=== PATIENT | male | born 1995 | race Caucasian/White ===

== ENCOUNTER 2017-08-15 05:46 | Emergency (ER) | payer OTHER ==
[2017-08-15 06:17] LABS: Basophils # (A) 0.1 k/uL (0-0.2); Basophils % (A) 1 %; Eosinophils # (A) 0.3 k/uL (0-0.7); Eosinophils % (A) 4 %; HCT 41.2 % (39.0-53.0); HGB 14.5 gm/dL (13.0-17.5); Lymphocytes # (A) 2.8 k/uL (1.0-4.8); Lymphocytes % (A) 31 %; MCHC 35.1 g/dL (31.0-37.0); MCV 76.7 fL (80.0-100.0); Mean Platelet Volume 6.9; Monocytes # (A) 0.4 k/uL (0-1.0); Monocytes % (A) 5 %; Neutrophils # (A) 5.1 k/uL (1.3-7.7); Neutrophils % (A) 58 %; Platelet Count 359 k/uL (150-450); RBC 5.36 m/uL (4.30-5.90); WBC 8.9 k/uL (4.0-11.0)
--- NOTE | 2017-08-15 06:29 | XR ---
EXAMINATION TYPE: XR chest 2V DATE OF EXAM: 08/15/2017 COMPARISON: NONE HISTORY: Chest pain TECHNIQUE: Frontal and lateral views of the chest are obtained. FINDINGS: Heart and mediastinum are normal. Lungs are clear. Diaphragm is normal. Bony thorax appear s normal. IMPRESSION: Normal chest.
[2017-08-15 06:31] LABS: ALT 42 U/L (21-72); AST 31 U/L (17-59); Albumin 4.2 g/dL (3.5-5.0); Alkaline Phosphatase 100 U/L (38-126); Anion Gap 17 mmol/L; Blood Urea Nitrogen 14 mg/dL (9-20); Calcium 8.9 mg/dL (8.4-10.2); Carbon Dioxide 24 mmol/L (22-30); Chloride 103 mmol/L (98-107); Glucose 139 mg/dL (74-99); Potassium 4.1 mmol/L (3.5-5.1); Sodium 144 mmol/L (137-145); Total Bilirubin 0.3 mg/dL (0.2-1.3); Total Protein 7.1 g/dL (6.3-8.2)
--- NOTE | 2017-08-15 06:47 | ED ---
Chest Pain HPI - General Chief Complaint: Chest Pain Stated Complaint: chest tightness Time Seen by Provider: 08/15/17 05:55 Source: patient, family Mode of arrival: ambulatory Limitations: no limitations - History of Present Illness Initial Comments: Patient is 21-year-old man who woke from sleep about an hour ago with feeling like he couldn't breathe, and anxious feeling like he was trapped. He also had a tight feeling across his chest. Denies previous history. MD Complaint: chest pain Onset/Timin -: hour(s) Onset: during rest Pain Location: substernal Pain Radiation: none Quality: tightness Consistency: now resolved Improves With: nothing Worsens With: nothing Treatments Prior to Arrival: none - Related Data Home Medications Medication Instructions Recorded Confirmed No Known Home Medications [No 08/15/17 08/15/17 Known Home Medications] Allergies Allergy/AdvReac Type Severity Reaction Status Date / Time Penicillins Allergy Unknown Verified 08/15/17 05:52 Review of Systems ROS Statement: Those systems with pertinent positive or pertinent negative responses have been documented in the HPI. ROS Other: All systems not noted in ROS Statement are negative. Constitutional: Denies: fever, chills Respiratory: Reports: as per HPI, dyspnea. Denies: cough Cardiovascular: Reports: as per HPI, chest pain, palpitations. Denies: orthopnea, edema, syncope Gastrointestinal: Denies: abdominal pain, nausea, vomiting Musculoskeletal: Denies: back pain Skin: Denies: rash Neurological: Denies: headache, weakness, numbness Psychiatric: Reports: anxiety EKG Findings - EKG Results: EKG: interpreted by WENDY CASTRO, sinus rhythm (Rate approximate 90 bpm), normal axis, normal QRS, normal ST/T, no acute changes - [place], Pacemaker, Normal: Normal tracing: normal tracing Past Medical History Past Medical History: No Reported History History of Any Multi-Drug Resistant Organisms: None Reported Past Surgical History: No Surgical Hx Reported Past Psychological History: No Psychological Hx Reported Smoking Status: Never smoker Past Alcohol Use History: Occasional Past Drug Use History: None Reported General Exam Limitations: no limitations General appearance: alert, in no apparent distress, obese Head exam: Present: atraumatic, normocephalic Eye exam: Present: normal appearance Neck exam: Present: normal inspection, full ROM Respiratory exam: Present: normal lung sounds bilaterally. Absent: respiratory distress, wheezes, rales, rhonchi Cardiovascular Exam: Present: regular rate, normal rhythm, normal heart sounds. Absent: systolic murmur, diastolic murmur, rubs, gallop GI/Abdominal exam: Present: soft. Absent: distended, tenderness, guarding, rebound Extremities exam: Present: normal inspection, normal capillary refill. Absent: pedal edema, calf tenderness Back exam: Present: normal inspection. Absent: CVA tenderness (R), CVA tenderness (L) Psychiatric exam: Present: anxious. Absent: homicidal ideation, suicidal ideation Skin exam: Present: warm, dry, intact, normal color. Absent: rash Course Vital Signs 08/15/17 08/15/17 08/15/17 05:48 06:44 07:40 Temperature 97.3 F L 97.9 F Pulse Rate 83 96 89 Respiratory 20 18 16 Rate Blood Pressure 168/90 145/76 142/75 O2 Sat by Pulse 100 98 98 Oximetry Disposition Clinical Impression: Sleep apnea Disposition: HOME SELF-CARE Condition: Good Instructions: Chest Pain (ED) Is patient prescribed a controlled substance at d/c from ED?: No Referrals: Brando Mathews MD [Primary Care Provider] - 1-2 days
[2017-08-15 07:42] VITALS: BP 142/75; PULSE 89; RESP 16; TEMP 97.9
== END 2017-08-15 07:40 | disposition home or self-care (01) ==
LOC: EC 05:46
DX: G47.30 Sleep apnea, unspecified (principal); R07.2 Precordial pain; Z88.0 Allergy status to penicillin
CPT/HCPCS: 36415; 71046; 80053; 83735; 84484; 85025; 85379; 93005; 99285

== ENCOUNTER 2018-02-08 19:42 | Emergency (ER) | payer OTHER ==
[2018-02-08 19:52] VITALS: RESP 20
[2018-02-08 21:28] LABS: Amphetamine Screen,Urine Not Detected (NotDetected); Barbiturate Screen,Urine Not Detected (NotDetected); Benzodiazepines Screen,Urine Not Detected (NotDetected); Cocaine Screen,Urine Not Detected (NotDetected); Methadone Screen, Urine Not Detected (NotDetected); Opiate Screen,Urine Not Detected (NotDetected); Oxycodone Screen, Urine Not Detected (NotDetected); Phencyclidine Screen,Urine Not Detected (NotDetected); Tricyclic Antidepressant,Urine Not Detected (NotDetected); Urn Cannabinoid Scrn Not Detected (NotDetected)
--- NOTE | 2018-02-08 21:44 | ED ---
Psych HPI - General Source: patient Mode of arrival: ambulatory <Carlita Stiles - Last Filed: 02/09/18 03:55> <Yesenia Mulligan - Last Filed: 02/09/18 04:17> - General Chief Complaint: Psychiatric Symptoms Stated Complaint: Mental health Time Seen by Provider: 02/08/18 20:06 - History of Present Illness Initial Comments: 22-year-old male patient presents to the emergency department today with complaints of increased anxiety. Patient states that over the last few days he has been having "visions" about his and child being . He is concerned that he may be of the cause of their deaths which makes him feel very upset and anxious. He states that he has had thoughts of killing himself before he can do any harm to his family. States that he has no urge or impulse to harm them however given the visions he feels very concerned about this. Patient has a history of anxiety and has been taking Klonopin for this. He was started on Celexa but had increasing thoughts of suicide today did stop that medication. Patient does not see a counselor or therapist outpatient. Patient has no history of suicide attempt. Denies any alcohol or drug use. States he is in the Klonopin he is able to sleep and rest. He denies any current physical symptoms or concerns. (Carlita Stiles) - Related Data Home Medications Medication Instructions Recorded Confirmed clonazePAM [KlonoPIN] 0.5 mg PO BID PRN 02/08/18 02/08/18 Allergies Allergy/AdvReac Type Severity Reaction Status Date / Time Penicillins Allergy Rash/Hives Verified 02/08/18 21:32 Review of Systems ROS Other: All systems not noted in ROS Statement are negative. <Carlita Stiles - Last Filed: 02/09/18 03:55> ROS Other: All systems not noted in ROS Statement are negative. <Yesenia Mulligan - Last Filed: 02/09/18 04:17> ROS Statement: Those systems with pertinent positive or pertinent negative responses have been documented in the HPI. Past Medical History Past Medical History: No Reported History History of Any Multi-Drug Resistant Organisms: None Reported Past Surgical History: No Surgical Hx Reported Additional Past Surgical History / Comment(s): deviated septum with cautery. Past Psychological History: Anxiety Smoking Status: Never smoker Past Alcohol Use History: None Reported, Occasional Past Drug Use History: None Reported <Carlita Stiles - Last Filed: 02/09/18 03:55> General Exam Limitations: no limitations General appearance: alert, in no apparent distress, other (This is a well- developed, well-nourished male male patient in no acute distress. Vital signs upon presentation are temperature 98.1F, pulse 106, respirations 20, blood pressure 159/82, pulse ox 100% on room air.) Respiratory exam: Present: normal lung sounds bilaterally. Absent: respiratory distress, wheezes, rales, rhonchi, stridor Cardiovascular Exam: Present: regular rate, normal rhythm, normal heart sounds. Absent: systolic murmur, diastolic murmur, rubs, gallop, clicks GI/Abdominal exam: Present: soft, normal bowel sounds. Absent: distended, tenderness, guarding, rebound, rigid Neurological exam: Present: alert, oriented X3, CN II-XII intact, other ( Strength in all 4, uses 5/5.) Psychiatric exam: Present: depressed, anxious, suicidal ideation. Absent: homicidal ideation Skin exam: Present: warm, dry, intact, normal color. Absent: rash <Carlita Stiles - Last Filed: 02/09/18 03:55> Vital Signs 02/08/18 19:45 Temperature 98.1 F Pulse Rate 106 H Respiratory 20 Rate Blood Pressure 159/82 O2 Sat by Pulse 100 Oximetry Medical Decision Making - Lab Data Result diagrams: 02/08/18 23:00 02/08/18 23:00 <Carlita Stiles - Last Filed: 02/09/18 03:55> - Lab Data Result diagrams: 02/08/18 23:00 02/08/18 23:00 <Yesenia Mulligan - Last Filed: 02/09/18 04:17> - Medical Decision Making 22-year-old male patient presented to the emergency department today with complaints of increased anxiety. He was seen and evaluated by emergency psychiatric services, it is felt that he would benefit from inpatient admission. Unfortunately his body habitus is not compatible with our beds on the mental health unit so he will have to be transferred to a different facility. Clinical significant was obtained. He'll be transferred when a bed is available. (Carlita Stiles) Personally saw and evaluated the patient, I discussed the patient that my role was to evaluate him for completion of the clinical certification for admission to a psychiatric hospital. Patient's breast understanding of this. Patient expressed extreme anxiety and desire to be admitted to an inpatient psychiatric Hospital. I completed the psychiatric certification paperwork. Patient remained cooperative and hemodynamically stable throughout his ER stay. (Yesenia Mulligan) - Lab Data Lab Results 02/08/18 02/08/18 02/08/18 Range/Units 20:44 20:44 23:00 WBC 10.6 (3.8-10.6) k/uL RBC 4.97 (4.30-5.90) m/uL Hgb 12.8 L (13.0-17.5) gm/dL Hct 38.5 L (39.0-53.0) % MCV 77.4 L (80.0-100.0) fL MCH 25.8 (25.0-35.0) pg MCHC 33.3 (31.0-37.0) g/dL RDW 13.6 (11.5-15.5) % Plt Count 330 (150-450) k/uL Neutrophils % 66 % Lymphocytes % 26 % Monocytes % 5 % Eosinophils % 2 % Basophils % 1 % Neutrophils # 7.0 (1.3-7.7) k/uL Lymphocytes # 2.7 (1.0-4.8) k/uL Monocytes # 0.5 (0-1.0) k/uL Eosinophils # 0.2 (0-0.7) k/uL Basophils # 0.1 (0-0.2) k/uL Sodium (137-145) mmol/L Potassium (3.5-5.1) mmol/L Chloride (98-107) mmol/L Carbon Dioxide (22-30) mmol/L Anion Gap mmol/L BUN (9-20) mg/dL Creatinine (0.66-1.25) mg/dL Est GFR (CKD-EPI)AfAm (>60 ml/min/1.73 sqM) Est GFR (CKD-EPI)NonAf (>60 ml/min/1.73 sqM) Glucose (74-99) mg/dL Calcium (8.4-10.2) mg/dL Total Bilirubin (0.2-1.3) mg/dL AST (17-59) U/L ALT (21-72) U/L Alkaline Phosphatase (38-126) U/L Total Protein (6.3-8.2) g/dL Albumin (3.5-5.0) g/dL Urine Color Yellow Urine Appearance Clear (Clear) Urine pH 6.0 (5.0-8.0) Ur Specific [place] 1.022 (1.001-1.035) Urine Protein Negative (Negative) Urine Glucose (UA) Negative (Negative) Urine Ketones Negative (Negative) Urine Blood Negative (Negative) Urine Nitrite Negative (Negative) Urine Bilirubin Negative (Negative) Urine Urobilinogen <2.0 (<2.0) mg/dL Ur Leukocyte Esterase Negative (Negative) Urine Opiates Screen Not Detected (NotDetected) Ur Oxycodone Screen Not Detected (NotDetected) Urine Methadone Screen Not Detected (NotDetected) Ur Propoxyphene Screen Not Detected (NotDetected) Ur Barbiturates Screen Not Detected (NotDetected) U Tricyclic Antidepress Not Detected (NotDetected) Ur Phencyclidine Scrn Not Detected (NotDetected) Ur Amphetamines Screen Not Detected (NotDetected) U Methamphetamines Scrn Not Detected (NotDetected) U Benzodiazepines Scrn Not Detected (NotDetected) Urine Cocaine Screen Not Detected (NotDetected) U Marijuana (THC) Screen Not Detected (NotDetected) 02/08/18 Range/Units 23:00 WBC (3.8-10.6) k/uL RBC (4.30-5.90) m/uL Hgb (13.0-17.5) gm/dL Hct (39.0-53.0) % MCV (80.0-100.0) fL MCH (25.0-35.0) pg MCHC (31.0-37.0) g/dL RDW (11.5-15.5) % Plt Count (150-450) k/uL Neutrophils % % Lymphocytes % % Monocytes % % Eosinophils % % Basophils % % Neutrophils # (1.3-7.7) k/uL Lymphocytes # (1.0-4.8) k/uL Monocytes # (0-1.0) k/uL Eosinophils # (0-0.7) k/uL Basophils # (0-0.2) k/uL Sodium 140 (137-145) mmol/L Potassium 4.0 (3.5-5.1) mmol/L Chloride 105 (98-107) mmol/L Carbon Dioxide 28 (22-30) mmol/L Anion Gap 7 mmol/L BUN 18 (9-20) mg/dL Creatinine 0.75 (0.66-1.25) mg/dL Est GFR (CKD-EPI)AfAm >90 (>60 ml/min/1.73 sqM) Est GFR (CKD-EPI)NonAf >90 (>60 ml/min/1.73 sqM) Glucose 108 H (74-99) mg/dL Calcium 9.4 (8.4-10.2) mg/dL Total Bilirubin 0.5 (0.2-1.3) mg/dL AST 23 (17-59) U/L ALT 38 (21-72) U/L Alkaline Phosphatase 56 (38-126) U/L Total Protein 7.0 (6.3-8.2) g/dL Albumin 3.9 (3.5-5.0) g/dL Urine Color Urine Appearance (Clear) Urine pH (5.0-8.0) Ur Specific [place] (1.001-1.035) Urine Protein (Negative) Urine Glucose (UA) (Negative) Urine Ketones (Negative) Urine Blood (Negative) Urine Nitrite (Negative) Urine Bilirubin (Negative) Urine Urobilinogen (<2.0) mg/dL Ur Leukocyte Esterase (Negative) Urine Opiates Screen (NotDetected) Ur Oxycodone Screen (NotDetected) Urine Methadone Screen (NotDetected) Ur Propoxyphene Screen (NotDetected) Ur Barbiturates Screen (NotDetected) U Tricyclic Antidepress (NotDetected) Ur Phencyclidine Scrn (NotDetected) Ur Amphetamines Screen (NotDetected) U Methamphetamines Scrn (NotDetected) U Benzodiazepines Scrn (NotDetected) Urine Cocaine Screen (NotDetected) U Marijuana (THC) Screen (NotDetected) Disposition <Carlita Stiles M - Last Filed: 02/09/18 03:55> <Yesenia Mulligan P - Last Filed: 02/09/18 04:17> Clinical Impression: Anxiety, Suicidal ideation Disposition: TRANSFER TO PSYCH HOSP/UNIT Referrals: Gaetano Soriano MD [Primary Care Provider] - 1-2 days
[2018-02-08 22:47] LABS: Appearance,Urine Clear (Clear); Bilirubin,Urine Negative (Negative); Blood,Urine Negative (Negative); Color,Urine Yellow; Glucose,Urine (UA) Negative (Negative); Ketones,Urine Negative (Negative); Leukocyte Esterase,Urine Negative (Negative); Nitrite,Urine Negative (Negative); Protein,Urine Negative (Negative); Specific Gravity,Urine 1.022 (1.001-1.035); Urobilinogen,Urine <2.0 mg/dL (<2.0)
[2018-02-08 23:14] LABS: Basophils # (A) 0.1 k/uL (0-0.2); Basophils % (A) 1 %; Eosinophils # (A) 0.2 k/uL (0-0.7); Eosinophils % (A) 2 %; HCT 38.5 % (39.0-53.0); HGB 12.8 gm/dL (13.0-17.5); Lymphocytes # (A) 2.7 k/uL (1.0-4.8); Lymphocytes % (A) 26 %; MCH 25.8 pg (25.0-35.0); MCHC 33.3 g/dL (31.0-37.0); MCV 77.4 fL (80.0-100.0); Mean Platelet Volume 7.1; Monocytes # (A) 0.5 k/uL (0-1.0); Monocytes % (A) 5 %; Neutrophils % (A) 66 %; Platelet Count 330 k/uL (150-450); RBC 4.97 m/uL (4.30-5.90); RDW 13.6 % (11.5-15.5); WBC 10.6 k/uL (3.8-10.6)
[2018-02-08 23:25] LABS: ALT 38 U/L (21-72); AST 23 U/L (17-59); Albumin 3.9 g/dL (3.5-5.0); Alkaline Phosphatase 56 U/L (38-126); Anion Gap 7 mmol/L; Blood Urea Nitrogen 18 mg/dL (9-20); Calcium 9.4 mg/dL (8.4-10.2); Carbon Dioxide 28 mmol/L (22-30); Chloride 105 mmol/L (98-107); Glucose 108 mg/dL (74-99); Sodium 140 mmol/L (137-145); Total Bilirubin 0.5 mg/dL (0.2-1.3)
[2018-02-09] MEDS ORDERED: clonazePAM 0.5 MG TAB PO STA (00:54)
[2018-02-09 07:34] VITALS: BP 125/62; PULSE 76; TEMP 97.7
== END 2018-02-09 09:14 ==
LOC: EC 19:42
DX: F41.9 Anxiety disorder, unspecified (principal); R45.851 Suicidal ideations; Z88.0 Allergy status to penicillin
CPT/HCPCS: 36415; 80053; 80306; 81003; 82075; 85025; 99285

== ENCOUNTER → 2020-10-17 | Outpatient (CLI) | payer OTHER ==
--- NOTE | 2020-10-17 12:11 | XR ---
EXAMINATION TYPE: XR chest 2V DATE OF EXAM: 10/17/2020 COMPARISON: 12/14/2019 HISTORY: 25-year-old male J20.9, acute bronchitis, cough TECHNIQUE: Frontal and lateral views FINDINGS: The cardiomediastinal silhouette, aorta, and pulmonary vasculature are within normal limits. Hazy eva g densities related to overlying soft tissue. Otherwise, lungs and pleural spaces are clear. IMPRESSION: No acute cardiopulmonary process.
== END | disposition home or self-care (01) ==
LOC: RADXRMAIN 11:33
PROVIDERS: ATTEND Nurse Practitioner
DX: J20.9 Acute bronchitis, unspecified (principal); R05 Cough
CPT/HCPCS: 71046

== ENCOUNTER → 2020-10-18 | Outpatient (CLI) | payer OTHER | END | disposition home or self-care (01) | LOC: LABWHC1 12:00 | PROVIDERS: ATTEND Family Medicine | DX: Z20.822 Contact with and (suspected) exposure to COVID-19 (principal) | CPT/HCPCS: U0003; U0005 ==

== ENCOUNTER 2020-10-23 17:56 | Inpatient (IN) | payer OTHER ==
[2020-10-23] MEDS ORDERED: ACETAMINOPHEN TAB 500 MG TAB PO STA (18:31)
[2020-10-23] MEDS ORDERED: IBUPROFEN 600 MG TAB PO STA (18:31)
--- NOTE | 2020-10-23 18:44 | ED ---
General Adult HPI - General Chief complaint: Fever Stated complaint: cough/weak/sob/fever Time Seen by Provider: 10/23/20 18:25 Source: patient, RN notes reviewed, old records reviewed Mode of arrival: ambulatory Limitations: no limitations - History of Present Illness Initial comments: This is a 25-year-old male presents emergency room stating he's been coughing and saw his primary medical care doctor last day he was put on steroids antibiotics had a negative covert test and was sent home. Patient states he remains short of breath and continues to cough. Patient also states he continues to have a fever. Patient also complains of complete fatigue and just generalized weakness. Patient denies any nausea vomiting patient denies any abdominal pain patient states he has had loose stools lately but not quite diarrhea. Patient denies any leg swelling or calf tenderness. Patient states she's been coughing for about 2 weeks she's had a fever for at least 7 days. - Related Data Home Medications Medication Instructions Recorded Confirmed Albuterol Sulfate [Albuterol 2 puff INHALATION RT-QID PRN 10/23/20 10/23/20 Sulfate Hfa] Cefdinir [Omnicef] 300 mg PO Q12HR 10/23/20 10/23/20 Allergies Allergy/AdvReac Type Severity Reaction Status Date / Time Penicillins Allergy Rash/Hives Verified 10/23/20 19:57 Review of Systems ROS Statement: Those systems with pertinent positive or pertinent negative responses have been documented in the HPI. ROS Other: All systems not noted in ROS Statement are negative. Past Medical History Past Medical History: No Reported History History of Any Multi-Drug Resistant Organisms: None Reported Past Surgical History: No Surgical Hx Reported Additional Past Surgical History / Comment(s): deviated septum with cautery. Past Psychological History: Anxiety, Depression Smoking Status: Current every day smoker Past Alcohol Use History: Occasional Past Drug Use History: None Reported General Exam - General Exam Comments Initial Comments: GENERAL: Patient is well-developed and well-nourished. Patient is nontoxic and well- hydrated and is in mild distress. ENT: Neck is soft and supple. No significant lymphadenopathy is noted. Oropharynx is clear. Moist mucous membranes. Neck has full range of motion without eliciting any pain. EYES: The sclera were anicteric and conjunctiva were pink and moist. Extraocular movements were intact and pupils were equal round and reactive to light. Eyelids were unremarkable. PULMONARY: Unlabored respirations. Good breath sounds bilaterally. No audible rales rhonchi or wheezing was noted. CARDIOVASCULAR: Patient is tachycardic at 120 beats a minute ABDOMEN: Soft and nontender with normal bowel sounds. SKIN: Skin is clear with no lesions or rashes and otherwise unremarkable. NEUROLOGIC: Patient is alert and oriented x3. Cranial nerves II through XII are grossly intact. Motor and sensory are also intact. Normal speech, volume and content. Symmetrical smile. MUSCULOSKELETAL: Normal extremities with adequate strength and full range of motion. No lower extremity swelling or edema. No calf tenderness. LYMPHATICS: No significant lymphadenopathy is noted PSYCHIATRIC: Normal psychiatric evaluation. Limitations: no limitations Course Vital Signs 10/23/20 10/23/20 10/23/20 18:22 19:24 20:14 Temperature 101.7 F H 100.7 F H Pulse Rate 118 H Respiratory 20 20 Rate Blood Pressure 144/91 O2 Sat by Pulse 97 Oximetry Medical Decision Making - Medical Decision Making Patient's covert test is negative. Patient's CT of the chest shows no pulmonary embolism. Patient states he was running the room he becomes very short of breath at this time. I spoke with the [facility] hospitalist and they will be admitting the patient patient patient wrote admitting orders. - Lab Data Result diagrams: 10/23/20 18:49 10/23/20 18:49 Lab Results 10/23/20 10/23/20 10/23/20 Range/Units 18:49 18:49 18:49 WBC 9.2 (3.8-10.6) k/uL RBC 4.81 (4.30-5.90) m/uL Hgb 12.5 L (13.0-17.5) gm/dL Hct 36.8 L (39.0-53.0) % MCV 76.5 L (80.0-100.0) fL MCH 25.9 (25.0-35.0) pg MCHC 33.9 (31.0-37.0) g/dL RDW 15.9 H (11.5-15.5) % Plt Count 248 (150-450) k/uL MPV 8.2 Neutrophils % (Manual) 39 % Lymphocytes % (Manual) 55 % Monocytes % (Manual) 6 % Eosinophils % (Manual) 1 % Neutrophils # (Manual) 3.59 (1.3-7.7) k/uL Lymphocytes # (Manual) 5.06 H (1.0-4.8) k/uL Monocytes # (Manual) 0.55 (0-1.0) k/uL Eosinophils # (Manual) 0.09 (0-0.7) k/uL Nucleated RBCs 0 (0-0) /100 WBC Manual Slide Review Performed Reactive Lymphocytes Present Poikilocytosis Slight Microcytosis Slight D-Dimer 2.31 H (<0.60) mg/L FEU Sodium (137-145) mmol/L Potassium (3.5-5.1) mmol/L Chloride (98-107) mmol/L Carbon Dioxide (22-30) mmol/L Anion Gap mmol/L BUN (9-20) mg/dL Creatinine (0.66-1.25) mg/dL Est GFR (CKD-EPI)AfAm (>60 ml/min/1.73 sqM) Est GFR (CKD-EPI)NonAf (>60 ml/min/1.73 sqM) Glucose (74-99) mg/dL Plasma Lactic Acid Oh (0.7-2.0) mmol/L Calcium (8.4-10.2) mg/dL Total Bilirubin (0.2-1.3) mg/dL AST (17-59) U/L ALT (4-49) U/L Alkaline Phosphatase (38-126) U/L Total Protein (6.3-8.2) g/dL Albumin (3.5-5.0) g/dL Coronavirus (PCR) Not Detected (Not Detectd) 10/23/20 10/23/20 Range/Units 18:49 18:49 WBC (3.8-10.6) k/uL RBC (4.30-5.90) m/uL Hgb (13.0-17.5) gm/dL Hct (39.0-53.0) % MCV (80.0-100.0) fL MCH (25.0-35.0) pg MCHC (31.0-37.0) g/dL RDW (11.5-15.5) % Plt Count (150-450) k/uL MPV Neutrophils % (Manual) % Lymphocytes % (Manual) % Monocytes % (Manual) % Eosinophils % (Manual) % Neutrophils # (Manual) (1.3-7.7) k/uL Lymphocytes # (Manual) (1.0-4.8) k/uL Monocytes # (Manual) (0-1.0) k/uL Eosinophils # (Manual) (0-0.7) k/uL Nucleated RBCs (0-0) /100 WBC Manual Slide Review Reactive Lymphocytes Poikilocytosis Microcytosis D-Dimer (<0.60) mg/L FEU Sodium 134 L (137-145) mmol/L Potassium 3.6 (3.5-5.1) mmol/L Chloride 101 (98-107) mmol/L Carbon Dioxide 25 (22-30) mmol/L Anion Gap 8 mmol/L BUN 10 (9-20) mg/dL Creatinine 0.78 (0.66-1.25) mg/dL Est GFR (CKD-EPI)AfAm >90 (>60 ml/min/1.73 sqM) Est GFR (CKD-EPI)NonAf >90 (>60 ml/min/1.73 sqM) Glucose 104 H (74-99) mg/dL Plasma Lactic Acid Oh 1.3 (0.7-2.0) mmol/L Calcium 8.7 (8.4-10.2) mg/dL Total Bilirubin 0.7 (0.2-1.3) mg/dL AST 57 (17-59) U/L ALT 80 H (4-49) U/L Alkaline Phosphatase 72 (38-126) U/L Total Protein 6.7 (6.3-8.2) g/dL Albumin 3.7 (3.5-5.0) g/dL Coronavirus (PCR) (Not Detectd) Disposition Clinical Impression: Dyspnea, Fever, unknown origin Disposition: ADMITTED IP TO THIS HOSP Referrals: Gaetano Soriano MD [Primary Care Provider] - 1-2 days Time of Disposition: 21:15
[2020-10-23 19:10] LABS: ALT 80 U/L (4-49); AST 57 U/L (17-59); African American GFR (CKD) >90 (>60 ml/min/1.73 sqM); Albumin 3.7 g/dL (3.5-5.0); Alkaline Phosphatase 72 U/L (38-126); Anion Gap 8 mmol/L; Blood Urea Nitrogen 10 mg/dL (9-20); Calcium 8.7 mg/dL (8.4-10.2); Carbon Dioxide 25 mmol/L (22-30); Chloride 101 mmol/L (98-107); Glucose 104 mg/dL (74-99); Non-African American GFR(CKD) >90 (>60 ml/min/1.73 sqM); Potassium 3.6 mmol/L (3.5-5.1); Sodium 134 mmol/L (137-145); Total Bilirubin 0.7 mg/dL (0.2-1.3); Total Protein 6.7 g/dL (6.3-8.2)
[2020-10-23 19:18] LABS: HCT 36.8 % (39.0-53.0); HGB 12.5 gm/dL (13.0-17.5); MCH 25.9 pg (25.0-35.0); MCHC 33.9 g/dL (31.0-37.0); MCV 76.5 fL (80.0-100.0); Mean Platelet Volume 8.2; Microcytosis Slight; Platelet Count 248 k/uL (150-450); Poikilocytosis Slight; RBC 4.81 m/uL (4.30-5.90); RDW 15.9 % (11.5-15.5); WBC 9.2 k/uL (3.8-10.6)
--- NOTE | 2020-10-23 19:23 | XR ---
EXAMINATION TYPE: XR chest 2V DATE OF EXAM: 10/23/2020 COMPARISON: 10/17/2020 HISTORY: Cough. Short of breath TECHNIQUE: FINDINGS: Heart and mediastinum are normal. Lungs are clear. Diaphragm is normal. Bony thorax is inta ct. IMPRESSION: Multiple chest. No change.
[2020-10-23 19:33] LABS: Eosinophils # (M) 0.09 k/uL (0-0.7); Lymphocytes # (M) 5.06 k/uL (1.0-4.8); Monocytes # (M) 0.55 k/uL (0-1.0); Neutrophils # (M) 3.59 k/uL (1.3-7.7); Neutrophils % (M) 39 %; Nucleated Red Blood Cells 0 /100 WBC (0-0); Total Cells Counted 200
[2020-10-23 19:35] LABS: Reactive Lymphocytes Present
--- NOTE | 2020-10-23 21:01 | CT ---
EXAMINATION TYPE: CT chest angio for PE DATE OF EXAM: 10/23/2020 COMPARISON: None HISTORY: SOB, elevated d-dimer CT DLP: 1147.3 mGycm Automated exposure control for dose reduction was used. CONTRAST: Performed with IV Contrast, patient injected with 100 mL of Isovue 370. There are 3-D post processed images. The lungs are clear of infiltrate. There is no pleural effusion. There is 4 mm nodule in the posterio r right lower lobe. There is no pleural effusion. Heart size is normal. There is no pericardial effusion. There are no hilar masses. There is no medias tinal adenopathy. Thoracic aorta is intact. There is no aneurysm or dissection. There is normal contr ast opacification of the pulmonary arteries. There are no filling defect. There is some fatty infiltr ation of the liver. Exam limited by patient's size. Spleen is enlarged and measures more than 17 cm. The thoracic spine is intact. There is no compressio n fracture. Sternum is intact. IMPRESSION: No evidence of pulmonary embolism. Small right pulmonary nodule of doubtful significance. Hepatosplenomegaly.
[2020-10-23] MEDS ORDERED: SODIUM CHLORIDE 0.9% 1,000 ML IV ONE (21:16)
[2020-10-24 07:56] VITALS: RESP 17
[2020-10-24] MEDS ORDERED: PANTOPRAZOLE 40 MG TABLET PO SCH (10:45)
[2020-10-24] MEDS ORDERED: LEVOFLOXACIN 750 MG TAB PO SCH (12:00)
--- NOTE | 2020-10-24 12:35 | P.CNPUL ---
History of Present Illness Consult date: 10/24/20 Requesting physician: Blayne Hudson Reason for consult: dyspnea, cough, other Chief complaint: Dyspnea, cough, fever History of present illness: This is a 25-year-old white male patient who came into the emergency department on 10/23/2020 with a complaint of dyspnea, fever, cough. Patient states he has had the symptoms for 2 weeks, he was treated in the outpatient basis with a course of Omnicef, and steroids. He states his symptoms started with nasal congestion, and cough. He tested negative for COVID 19. States his son was having some type of viral illness with upper respiratory symptoms. This despite outpatient treatment patient continued to cough, and continued to have a fever, complete fatigue, and generalized weakness. He denied any nausea or vomiting. No abdominal pain. He did have some loose stools but not quite diarrhea, no leg swelling or calf tenderness. On admission to the emergency department, he had a fever 101.7F. Room air pulse ox is 97%, his chest x-ray shows clear lungs, normal diaphragm, heart and mediastinum within normal limits. His labs show wh ite count of 9.2, hemoglobin of 12.5, platelet count of 248, d-dimer is 2.31, sodium is 134, the rest of electrolytes and renal profile were within normal limits, lactic acid was 1.3, his ALT was elevated at 80, AST and alkaline phosphatase were within normal limits, troponin was less than 0.012, TSH was within normal limits, d-dimer was 2.31, patient had CTA chest showed no evidence of pulmonary medicine, and small right pulmonary nodule of doubtful significance. The lungs were clear of infiltrates, no pleural effusions. On today's exam patient appears to be quite comfortable, awake and alert, oriented 3, he sitting up in the chair, on room air, just low-grade fevers overnight, denies any sinus tenderness, or congestion, overall seems to be improving, Legionella urine antigen has been ordered and pending, pro-calcitonin level has been sent, blood cultures have been sent, echocardiogram is pending. Otherwise patient seems to be quite comfortable, and denies any specific complaints at this time. Shortness of breath. Does report some snoring, possibly underlying sleep apnea, and is morbidly obese with a BMI 59.6 kg/m, and he does have GERD/reflux. She is a current day smoker, does have a history of deviated septum with cautery, and anxiety and depression. Review of Systems All systems: negative Constitutional: Reports fatigue, Reports weakness, Denies chills, Denies fever Eyes: denies blurred vision, denies pain Ears, nose, mouth and throat: Denies headache, Denies sore throat Cardiovascular: Denies chest pain, Denies shortness of breath Respiratory: Reports cough Gastrointestinal: Denies abdominal pain, Denies diarrhea, Denies nausea, Denies vomiting Musculoskeletal: Denies myalgias Integumentary: Denies pruritus, Denies rash Neurological: Denies numbness, Denies weakness Psychiatric: Denies anxiety, Denies depression Endocrine: Denies fatigue, Denies weight change Past Medical History Past Medical History: No Reported History History of Any Multi-Drug Resistant Organisms: None Reported Past Surgical History: No Surgical Hx Reported Additional Past Surgical History / Comment(s): deviated septum with cautery. Past Anesthesia/Blood Transfusion Reactions: No Reported Reaction Past Psychological History: Anxiety, Depression Smoking Status: Never smoker Past Alcohol Use History: Occasional Past Drug Use History: None Reported Medications and Allergies Home Medications Medication Instructions Recorded Confirmed Type Albuterol Sulfate [Albuterol 2 puff INHALATION RT-QID PRN 10/23/20 10/23/20 History Sulfate Hfa] Cefdinir [Omnicef] 300 mg PO Q12HR 10/23/20 10/23/20 History Allergies Allergy/AdvReac Type Severity Reaction Status Date / Time Penicillins Allergy Rash/Hives Verified 10/23/20 19:57 Physical Exam Vitals: Vital Signs Temp Pulse Pulse Resp BP BP Pulse Ox 10/24/20 08:00 17 10/24/20 07:26 98.5 F 100 17 163/82 97 10/24/20 02:00 98.4 F 88 16 121/76 96 10/23/20 23:06 98.1 F 87 16 129/75 10/23/20 22:31 99.0 F 110 H 20 143/79 98 10/23/20 20:14 100.7 F H 10/23/20 19:24 20 10/23/20 18:22 101.7 F H 118 H 20 144/91 97 Intake and Output 10/23/20 10/24/20 10/24/20 22:59 06:59 14:59 Other: Voiding Method Toilet # Voids 1 Weight 222.26 kg GENERAL EXAM: Alert, very possible, 25-year-old morbidly obese white male, sitting up in the chair, normal the pulse ox 97% comfortable in no apparent distress. HEAD: Normocephalic/atraumatic. EYES: Normal reaction of pupils, equal size. Conjunctiva pink, sclera white. NOSE: Clear with pink turbinates. THROAT: No erythema or exudates. NECK: No masses, no JVD, no thyroid enlargement, no adenopathy. CHEST: No chest wall deformity. Symmetrical expansion. LUNGS: Equal air entry with no crackles, wheeze, rhonchi or dullness. CVS: Regular rate and rhythm, normal S1 and S2, no gallops, no murmurs, no rubs ABDOMEN: Soft, nontender. No hepatosplenomegaly, normal bowel sounds, no guarding or rigidity. EXTREMITIES: No clubbing, no edema, no cyanosis, 2+ pulses and upper and lower extremities. MUSCULOSKELETAL: Muscle strength and tone normal. SPINE: No scoliosis or deformity SKIN: No rashes CENTRAL NERVOUS SYSTEM: Alert and oriented -3. No focal deficits, tone is normal in all 4 extremities. PSYCHIATRIC: Alert and oriented -3. Appropriate affect. Intact judgment and insight. Results - Laboratory Findings CBC and BMP: 10/23/20 18:49 10/23/20 18:49 PT/INR, D-dimer D-Dimer 2.31 mg/L FEU (<0.60) H 10/23/20 18:49 Abnormal lab findings: Abnormal Labs 10/23/20 10/23/20 10/23/20 18:49 18:49 18:49 Hgb 12.5 L Hct 36.8 L MCV 76.5 L RDW 15.9 H Lymphocytes # (Manual) 5.06 H D-Dimer 2.31 H Sodium 134 L Glucose 104 H ALT 80 H - Diagnostic Findings Chest x-ray: report reviewed, image reviewed CT scan - chest: report reviewed, image reviewed Assessment and Plan Plan: Assessment: #1. Cough, fever, possibly related to an acute sinus infection. No evidence of airspace disease on chest x-ray or CTA chest. COVID-19 PCR was negative. #2. History of deviated septum with cautery #3. Current smoker #4. Suspected underlying obstructive sleep apnea #5. Morbid obesity with BMI 59.6 kg/m #6. Elevated d-dimer, with no evidence of PE on the CT chest #7. 3 of anxiety and depression Plan: We'll obtain CT scan of the sinuses Patient can be started on Levaquin for antibiotic coverage Chest x-ray CTA chest reviewed No evidence of pneumonia, no pulmonary embolism Patient can be started on omeprazole for underlying reflux Outpatient follow-up with Dr. Verma in the office in one to 2 weeks Possible outpatient sleep study and this will be discussed in the office I performed a history & physical examination of the patient and discussed their management with my nurse practitioner, Rianna Schofield. I reviewed the nurse practitioner's note and agree with the documented findings and plan of care. Lung sounds are positive for diminished breath sounds throughout the lung borja. The findings and the impression was discussed with the patient. I attest to the documentation by the nurse practitioner. Time with Patient: Greater than 30
--- NOTE | 2020-10-24 15:01 | P.HPIM ---
History of Present Illness Patient is a pleasant 25-year-old male came in because of generalized tiredness and shortness of breath. Patient is morbidly obese does have his sleep apnea as per the history of the patient patient does wake up twice at is every night and does smoke a lot which was evidenced by the nursing staff. Patient was also comparing of cough no evidence of pneumonia on the CT patient was receiving antibiotics as prescribed by primary care physician when he presented with similar symptoms about a week ago. Patient was not cephalosporin for this. Patient was evaluated by pulmonology and they believe patient has sinusitis patient doesn't have any more fevers. I wanted to monitor him 1 more day and wanted infectious disease to evaluate the patient but patient is insisting on going home almost tearful when I asked him to stay. Patient to will check his temperature and if he continues to have temporary relief he doesn't feel good patient is willing to come back. Patient will be discharged on ferrous of Levaquin as recommended by pulmonology. Patient probably has sleep apnea which is contributing to his generalized tiredness due to lack of sleep during nighttime. Patient had a TSH which was within normal limits. Patient doesn't have any leukocytosis but his lymphocyte count is greater than 5000 because of which initially I consulted oncology although patient is not willing to stay further evaluation because of which we'll obtain flow cytometry for T cells and B cells along with the autoimmune panel patient will be discharged to follow up with oncology as an outpatient. Patient is mildly hyponatremic was receiving IV fluids. Hypovolemic hyponatremia patient denied any dysuria denied any abdominal pain doesn't have any cellulitis. Patient was also comparing of heartburn REVIEW OF SYSTEMS: CONSTITUTIONAL: As mentioned in HPI HEENT: No recent visual problems or hearing problems. Denied any sore throat. CARDIOVASCULAR: No chest pain, orthopnea, PND, no palpitations, no syncope. PULMONARY: no hemoptysis. GASTROINTESTINAL: No diarrhea, no nausea, no vomiting, no abdominal pain. NEUROLOGICAL: No headaches, no weakness, no numbness. HEMATOLOGICAL: Denies any bleeding or petechiae. GENITOURINARY: Denies any burning micturition, frequency, or urgency. MUSCULOSKELETAL/RHEUMATOLOGICAL: Denies any joint pain, swelling, or any muscle pain. ENDOCRINE: Denies any polyuria or polydipsia. The rest of the 14-point review of systems is negative. PHYSICAL EXAMINATION: GENERAL: The patient is alert and oriented x3, not in any acute distress. Morbidly obese HEENT: Pupils are round and equally reacting to light. EOMI. No scleral icterus. No conjunctival pallor. Normocephalic, atraumatic. No pharyngeal erythema. No thyromegaly. CARDIOVASCULAR: S1 and S2 present. No murmurs, rubs, or gallops. PULMONARY: Chest is clear to auscultation, no wheezing or crackles. ABDOMEN: Soft, nontender, nondistended, normoactive bowel sounds. No palpable organomegaly. MUSCULOSKELETAL: No joint swelling or deformity. EXTREMITIES: No cyanosis, clubbing, or pedal edema. NEUROLOGICAL: Gross neurological examination did not reveal any focal deficits. SKIN: No rashes. Assessment and plan -Fever: Etiology is not clear possibly a sinusitis as patient is insisting on going home patient will be given prescription for levofloxacin. -Ruled out pulmonary embolism patient had elevated d-dimer this is secondary to systemic inflammatory response. -Gastroesophageal reflux disease for which patient will be discharged on Protonix -Possible sleep apnea will need sleep study as an outpatient and patient will follow-up with pulmonology as an outpatient for that -Hypervolemic hyponatremia received IV fluids overnight -Morbid obesity dietary counseling was provided -Lymphocytosis with highly elevated absolute lymphocyte count further management and follow-up with hematology as mentioned above Past Medical History Past Medical History: No Reported History History of Any Multi-Drug Resistant Organisms: None Reported Past Surgical History: No Surgical Hx Reported Additional Past Surgical History / Comment(s): deviated septum with cautery. Past Anesthesia/Blood Transfusion Reactions: No Reported Reaction Past Psychological History: Anxiety, Depression Smoking Status: Never smoker Past Alcohol Use History: Occasional Past Drug Use History: None Reported Medications and Allergies Home Medications Medication Instructions Recorded Confirmed Type Levofloxacin [Levaquin] 750 mg PO DAILY #5 tab 10/24/20 Rx Pantoprazole [Protonix] 40 mg PO YAOBRKFST #15 tablet. 10/24/20 Rx Allergies Allergy/AdvReac Type Severity Reaction Status Date / Time Penicillins Allergy Rash/Hives Verified 10/23/20 19:57 Physical Exam Vitals: Vital Signs Temp Pulse Pulse Resp BP BP Pulse Ox 10/24/20 08:00 17 10/24/20 07:26 98.5 F 100 17 163/82 97 10/24/20 02:00 98.4 F 88 16 121/76 96 10/23/20 23:06 98.1 F 87 16 129/75 10/23/20 22:31 99.0 F 110 H 20 143/79 98 10/23/20 20:14 100.7 F H 10/23/20 19:24 20 10/23/20 18:22 101.7 F H 118 H 20 144/91 97 Intake and Output 10/24/20 10/24/20 10/24/20 06:59 14:59 22:59 Other: # Voids 1 Results CBC & Chem 7: 10/23/20 18:49 10/23/20 18:49 Labs: Abnormal Lab Results - Last 24 Hours (Table) 10/23/20 10/23/20 10/23/20 Range/Units 18:49 18:49 18:49 Hgb 12.5 L (13.0-17.5) gm/dL Hct 36.8 L (39.0-53.0) % MCV 76.5 L (80.0-100.0) fL RDW 15.9 H (11.5-15.5) % Lymphocytes # (Manual) 5.06 H (1.0-4.8) k/uL D-Dimer 2.31 H (<0.60) mg/L FEU Sodium 134 L (137-145) mmol/L Glucose 104 H (74-99) mg/dL ALT 80 H (4-49) U/L Procalcitonin (0.02-0.09) ng/mL 10/24/20 Range/Units 07:46 Hgb (13.0-17.5) gm/dL Hct (39.0-53.0) % MCV (80.0-100.0) fL RDW (11.5-15.5) % Lymphocytes # (Manual) (1.0-4.8) k/uL D-Dimer (<0.60) mg/L FEU Sodium (137-145) mmol/L Glucose (74-99) mg/dL ALT (4-49) U/L Procalcitonin 0.13 H (0.02-0.09) ng/mL Thrombosis Risk Factor Assmnt - Choose All That Apply Any of the Below Risk Factors Present?: Yes Each Factor Represents 1 point: Obesity (BMI >25) Thrombosis Risk Factor Assessment Total Risk Factor Score: 1 Thrombosis Risk Factor Assessment Level: Low Risk
--- NOTE | 2020-10-24 15:02 | P.DS ---
Providers Date of admission: 10/23/20 21:16 Attending physician: Socorro Leahy Consults: 10/23/20 21:16 Consult Physician Urgent Consulting Provider: Francesco Matthews Consult Reason/Comments: Dyspnea, fever Do you want consulting provider notified?: Yes 10/24/20 12:20 Consult Physician Routine Consulting Provider: Darion Patterson Consult Reason/Comments: elevated lymphocytes Do you want consulting provider notified?: Yes Primary care physician: Gaetano Soriano Hospital Course: Please refer to HPI for further details Plan - Discharge Summary New Discharge Prescriptions: New Levofloxacin [Levaquin] 750 mg PO DAILY #5 tab Pantoprazole [Protonix] 40 mg PO AC-BRKFST #15 tablet. Discontinued Cefdinir [Omnicef] 300 mg PO Q12HR Albuterol Sulfate [Albuterol Sulfate Hfa] 2 puff INHALATION RT-QID PRN PRN Reason: Shortness Of Breath Discharge Medication List Levofloxacin [Levaquin] 750 mg PO DAILY #5 tab 10/24/20 [Rx] Pantoprazole [Protonix] 40 mg PO AC-BRKFST #15 tablet. 10/24/20 [Rx] Follow up Appointment(s)/Referral(s): Gaetano Soriano MD [Primary Care Provider] - 3 Days Francesco Matthews MD [STAFF PHYSICIAN] - 1 Week Darion Patterson MD [STAFF PHYSICIAN] - 1 Week
--- NOTE | 2020-10-24 15:12 | P.CONS ---
History of Present Illness - Reason for Consult Consult date: 10/24/20 lymphocytosis Requesting physician: Tierra Elam - Chief Complaint malaise - History of Present Illness Pt is a very pleasant male pt we have been asked to see re: lymphocytosis. Pt reports at least 2 weeks of not feeling well, "never felt like this before", started with a cough, dry, cold and hot but denied fever, weak, "drained all the time", couldn't make it through the day without being very tired, this persisted, saw PCP last week, treated with steroid and abx, symptoms have not improved. On admit, lymphocytes and d-dimer are elevated, covid negative. Pt denies any PMH, he is not on any medications for diagnosed medical conditions. His maternal gpa had colon cancer, his maternal Aunt is BRCA + but, his mother was not. No personal Hx of cancer. Denies N,V, indigestion, early satiety, abd distension, changes in bowel or bladder habits. He is acitive, he and his have 2 children under the age of 1. He denies any IV drug use or history of activities that would put him at high risk for HIV. Review of Systems 10 point ROS is neg except as stated in HPI Past Medical History Past Medical History: No Reported History History of Any Multi-Drug Resistant Organisms: None Reported Past Surgical History: No Surgical Hx Reported Additional Past Surgical History / Comment(s): deviated septum with cautery. Past Anesthesia/Blood Transfusion Reactions: No Reported Reaction Past Psychological History: Anxiety, Depression Smoking Status: Never smoker Past Alcohol Use History: Occasional Past Drug Use History: None Reported Medications and Allergies Home Medications Medication Instructions Recorded Confirmed Type Levofloxacin [Levaquin] 750 mg PO DAILY #5 tab 10/24/20 Rx Pantoprazole [Protonix] 40 mg PO DIGNA-BRKFST #15 tablet. 10/24/20 Rx Allergies Allergy/AdvReac Type Severity Reaction Status Date / Time Penicillins Allergy Rash/Hives Verified 10/23/20 19:57 Physical Exam Vitals: Vital Signs Temp Pulse Pulse Resp BP BP Pulse Ox 10/24/20 08:00 17 10/24/20 07:26 98.5 F 100 17 163/82 97 10/24/20 02:00 98.4 F 88 16 121/76 96 10/23/20 23:06 98.1 F 87 16 129/75 10/23/20 22:31 99.0 F 110 H 20 143/79 98 10/23/20 20:14 100.7 F H 10/23/20 19:24 20 10/23/20 18:22 101.7 F H 118 H 20 144/91 97 Intake and Output 10/23/20 10/24/20 10/24/20 22:59 06:59 14:59 Other: Voiding Method Toilet # Voids 1 Weight 222.26 kg - Constitutional General appearance: cooperative, morbidly obese, no acute distress - EENT Eyes: anicteric sclerae, EOMI, dentition normal ENT: hearing grossly normal, normal oropharynx - Neck Neck: no lymphadenopathy - Respiratory Respiratory: bilateral: CTA - Cardiovascular Rhythm: regular Heart sounds: normal: S1, S2 Abnormal Heart Sounds: no systolic murmur, no diastolic murmur, no rub, no S3 Ga llop, no S4 Gallop, no click, no other leg Peripheral Edema: bilateral: None - Gastrointestinal General gastrointestinal: no absent bowel sounds, no decreased bowel sounds, no distended, no hepatomegaly, no hyperactive bowel sounds, normal bowel sounds, no organomegaly, no rigid, no scaphoid, soft, no splenomegaly, no tenderness, no umbilical hernia, no ventral hernia - Integumentary Integumentary: flushed, normal - Neurologic Neurologic: CNII-XII intact - Musculoskeletal Musculoskeletal: strength equal bilaterally - Psychiatric Psychiatric: A&O x's 3, appropriate affect, intact judgment & insight Results CBC & Chem 7: 10/23/20 18:49 10/23/20 18:49 Labs: Abnormal Lab Results - Last 24 Hours (Table) 10/23/20 10/23/20 10/23/20 Range/Units 18:49 18:49 18:49 Hgb 12.5 L (13.0-17.5) gm/dL Hct 36.8 L (39.0-53.0) % MCV 76.5 L (80.0-100.0) fL RDW 15.9 H (11.5-15.5) % Lymphocytes # (Manual) 5.06 H (1.0-4.8) k/uL D-Dimer 2.31 H (<0.60) mg/L FEU Sodium 134 L (137-145) mmol/L Glucose 104 H (74-99) mg/dL ALT 80 H (4-49) U/L Procalcitonin (0.02-0.09) ng/mL 10/24/20 Range/Units 07:46 Hgb (13.0-17.5) gm/dL Hct (39.0-53.0) % MCV (80.0-100.0) fL RDW (11.5-15.5) % Lymphocytes # (Manual) (1.0-4.8) k/uL D-Dimer (<0.60) mg/L FEU Sodium (137-145) mmol/L Glucose (74-99) mg/dL ALT (4-49) U/L Procalcitonin 0.13 H (0.02-0.09) ng/mL Chest x-ray: report reviewed CT scan - chest: report reviewed Assessment and Plan (1) Lymphocytosis Current Visit: Yes Status: Acute Priority: High Code(s): D72.820 - LYMPHOCYTOSIS (SYMPTOMATIC) SNOMED Code(s): 84605155 (2) Fever, unknown origin Current Visit: Yes Status: Acute Priority: High Code(s): R50.9 - FEVER, UNSPECIFIED SNOMED Code(s): 9699265 Plan: Case discussed with attending Lymphoma work up ordered. Plan to f/u outpt with results. Suspect a viral syndrome as cause for fever and elevated lymphocytes but, will f/u to resolution or order other testing as appropriate.
[2020-10-24 15:20] VITALS: BP 133/83; PULSE 101; TEMP 97.8
--- NOTE | 2020-10-24 15:36 | CT ---
EXAMINATION TYPE: CT sinus wo con DATE OF EXAM: 10/24/2020 COMPARISON: NONE HISTORY: Fever, cough, sinusitis. CT DLP: 545.6 mGycm. Automated Exposure Control for Dose Reduction was Utilized. TECHNIQUE: CT scan of the sinuses is performed without contrast, axial images are obtained, coronal r eformatted images are also reviewed. FINDINGS: There is 2.2 cm mucous retention cyst or polyp in the inferior left maxillary sinus. Remain margarito paranasal sinuses clear without suspicious opacification. The ostiomeatal complex is patent bilat erally on coronal image 27. Visualized portion of mastoid air cells show no abnormal opacification. The globes are intact bilate rally. IMPRESSION: No acute paranasal sinus disease.
[2020-10-24 16:05] LABS: LDH 1053 U/L (313-618)
--- NOTE | 2020-10-24 18:15 | ECHOF ---
Referral Reason:Dyspnea, fever MEASUREMENTS -------- HEIGHT: 193.0 cm WEIGHT: 215.0 kg BP: 121/76 RVIDd: 3.5 cm (< 3.3) IVSd: 1.5 cm (0.6 - 1.1) LVIDd: 4.8 cm (3.9 - 5.3) LVPWd: 1.6 cm (0.6 - 1.1) IVSs: 2.3 cm LVIDs: 3.0 cm LVPWs: 1.7 cm LA Diam: 3.3 cm (2.7 - 3.8) Ao Diam: 3.8 cm (2.0 - 3.7) AV Cusp: 2.6 cm (1.5 - 2.6) MV EXCURSION: 22.863 mm (> 18.000) MV EF SLOPE: 176 mm/s (70 - 150) EPSS: 0.4 cm MV E Steve: 0.82 m/s MV DecT: 171 ms MV A Steve: 0.85 m/s MV E/A Ratio: 0.96 RAP: 5.00 mmHg RVSP: 31.76 mmHg FINDINGS -------- Sinus rhythm. Resting tachycardia (HR>100bpm). This was a technically difficult study with suboptimal views. The left ventricular size is normal. There is moderate concentric left ventricular hypertrophy. O verall left ventricular systolic function is normal with, an EF between 60 - 65 %. The right ventricle is normal in size. The left atrium is normal in size. The right atrial size is normal. 5 ml of Lumason was utilized for enhancement of images. The aortic valve is trileaflet, and appears structurally normal. No aortic stenosis or regurgitation. The mitral valve was not well visualized. The tricuspid valve appears structurally normal. Mild tricuspid regurgitation present. Right vent ricular systolic pressure is normal at < 35 mmHg. The pulmonic valve was not well visualized. The aortic root is dilated measuring 3.8cm. IVC Not well visulized. There is no pericardial effusion. CONCLUSIONS -------- 1. This was a technically difficult study with suboptimal views. 2. There is moderate concentric left ventricular hypertrophy. 3. Overall left ventricular systolic function is normal with, an EF between 60 - 65 %. 4. The left atrium is normal in size. 5. 5 ml of Lumason was utilized for enhancement of images. 6. The aortic valve is trileaflet, and appears structurally normal. No aortic stenosis or regurgitati on. 7. Mild tricuspid regurgitation present. 8. The aortic root is dilated measuring 3.8cm. 9. There is no pericardial effusion. CARD PLACER: Eleanor Caballero RDCS
[2020-10-25 03:50] LABS: Anti-Smith Ab Interp NEGATIVE (NEGATIVE)
[2020-10-25 06:11] LABS: Rheumatoid Factor, Qnt 10 IU/mL (0-15)
== END 2020-10-24 16:17 | disposition home or self-care (01) | DRG 864 ==
LOC: EC 17:56 → 4SSUR 21:16
PROVIDERS: ADMIT Hospitalist; ATTEND Hospitalist
DX: R50.9 Fever, unspecified (principal); E87.1 Hypo-osmolality and hyponatremia; Z68.43 Body mass index [BMI] 50.0-59.9, adult; R05 Cough; R06.02 Shortness of breath; R53.1 Weakness; R53.83 Other fatigue; J34.2 Deviated nasal septum; F32.9 Major depressive disorder, single episode, unspecified; F41.9 Anxiety disorder, unspecified; F17.210 Nicotine dependence, cigarettes, uncomplicated; D72.820 Lymphocytosis (symptomatic); E66.01 Morbid (severe) obesity due to excess calories; E86.1 Hypovolemia; E87.70 Fluid overload, unspecified; F17.200 Nicotine dependence, unspecified, uncomplicated; G47.30 Sleep apnea, unspecified; K21.9 Gastro-esophageal reflux disease without esophagitis; Z79.899 Other long term (current) drug therapy; Z20.822 Contact with and (suspected) exposure to COVID-19
CPT/HCPCS: 36415; 70486; 71046; 71275; 80053; 83605; 83615; 84145; 84443; 84484; 85025; 85379; 86038; 86235; 86431; 87040; 87449; 87635; 93306; 99285

== ENCOUNTER 2021-03-08 14:27 | Emergency (ER) | payer OTHER ==
[2021-03-08] MEDS ORDERED: SODIUM CHLORIDE 0.9% 50 ML IVPB ONE (16:15)
[2021-03-08] MEDS ORDERED: BAMLANIVIMAB (EUA) 700 MG, ETESEVIMAB (EUA) 1,400 MG in SODIUM CHLORIDE 0.9% 50 ML IVPB ONE (16:15)
--- NOTE | 2021-03-08 16:19 | ED ---
URI HPI - General Chief Complaint: Upper Respiratory Infection Stated Complaint: covid+/antibodies Time Seen by Provider: 03/08/21 15:41 Source: patient, RN notes reviewed Mode of arrival: ambulatory Limitations: no limitations - History of Present Illness Initial Comments: 24-year-old male presents emergency Department with chief complaint of COVID-19. Patient states tested positive on 03/07/2021. Patient states he was seen at [facility]. Patient complains of loss of taste and smell, diffuse body aches, sinus congestion and cough no chest pain or shortness of breath. Patient's had no prior vaccine no other complaints. - Related Data Previous Rx's Medication Instructions Recorded Levofloxacin [Levaquin] 750 mg PO DAILY #5 tab 10/24/20 Pantoprazole [Protonix] 40 mg PO AC-BRKFST #15 tablet. 10/24/20 Allergies Allergy/AdvReac Type Severity Reaction Status Date / Time Penicillins Allergy Rash/Hives Verified 03/08/21 15:28 Review of Systems ROS Statement: Those systems with pertinent positive or pertinent negative responses have been documented in the HPI. ROS Other: All systems not noted in ROS Statement are negative. Past Medical History Past Medical History: No Reported History History of Any Multi-Drug Resistant Organisms: None Reported Past Surgical History: No Surgical Hx Reported Additional Past Surgical History / Comment(s): deviated septum with cautery. Past Anesthesia/Blood Transfusion Reactions: No Reported Reaction Past Psychological History: Anxiety, Depression Smoking Status: Former smoker Past Alcohol Use History: Occasional Past Drug Use History: None Reported General Exam General appearance: alert, in no apparent distress Head exam: Present: atraumatic, normocephalic, normal inspection Eye exam: Present: normal appearance, PERRL, EOMI. Absent: scleral icterus, conjunctival injection, periorbital swelling ENT exam: Present: normal exam, mucous membranes moist Neck exam: Present: normal inspection, full ROM. Absent: tenderness, meningismus, lymphadenopathy Respiratory exam: Present: normal lung sounds bilaterally. Absent: respiratory distress, wheezes, rales, rhonchi, stridor Cardiovascular Exam: Present: regular rate, normal rhythm, normal heart sounds. Absent: systolic murmur, diastolic murmur, rubs, gallop, clicks Course Vital Signs 03/08/21 15:24 Temperature 98.4 F Pulse Rate 98 Respiratory 18 Rate Blood Pressure 148/88 O2 Sat by Pulse 98 Oximetry Medical Decision Making - Medical Decision Making Patient is COVID-19 positive he did receive monoclonal antibodies. Patient discharged in stable condition return parameters were discussed. Disposition Clinical Impression: COVID-19 Disposition: HOME SELF-CARE Condition: Stable Instructions (If sedation given, give patient instructions): Coronavirus Disease 2019 (COVID-19) Additional Instructions: Please return to the Emergency Department if symptoms worsen or any other concerns. Is patient prescribed a controlled substance at d/c from ED?: No Referrals: Gaetano Soriano MD [Primary Care Provider] - 1-2 days Time of Disposition: 16:19
[2021-03-08 17:34] VITALS: BP 171/91; PULSE 18; RESP 87; TEMP 97.9
== END 2021-03-08 18:49 | disposition home or self-care (01) ==
LOC: EC 14:27
DX: U07.1 COVID-19 (principal); F41.9 Anxiety disorder, unspecified; F32.A Depression, unspecified; Z87.891 Personal history of nicotine dependence; Z88.0 Allergy status to penicillin
CPT/HCPCS: 99283; M0245